=== PATIENT | female | born 1995 | race Caucasian/White ===

== ENCOUNTER 2022-01-29 20:00 | Emergency (ER) | payer MEDICAID ==
[~2022-01-29] VITALS: Ht 170.2 cm; Wt 91.0 kg
[2022-01-29 20:06] VITALS: BP 125/84
[2022-01-29] MEDS ORDERED: ketorolac trometh inj. 60 MG/2 ML VIAL IM ONE (20:40)
== END 2022-01-29 21:26 | disposition home or self-care (01) ==
LOC: ER 20:00
DX: M79.645 Pain in left finger(s) (principal); F41.9 Anxiety disorder, unspecified; X58.XXXA Exposure to other specified factors, initial encounter; Y93.89 Activity, other specified; Y92.89 Other specified places as the place of occurrence of the external cause; Y99.8 Other external cause status
CPT/HCPCS: 73140; 96372; 99283; J1885